=== PATIENT | female | born 1995 | race Caucasian/White ===

== ENCOUNTER 2021-06-16 13:49 | Emergency (ER) | payer MEDICAID ==
[~2021-06-16] VITALS: Ht 175.3 cm; Wt 124.3 kg
[2021-06-16 14:09] VITALS: BP_SYST 160
[2021-06-16 14:41] LABS: BILIRUBIN,URINE NEGATIVE (NEGATIVE); BLOOD, URINE 3+ (NEGATIVE); CLARITY/URINE SL CLOUDY (CLEAR); COLOR,URINE YELLOW (YELLOW); GLUCOSE,URINE NEGATIVE (NEGATIVE); KETONES,URINE NEGATIVE (NEGATIVE); LEUKOCYTE ESTERASE ,URINE 1+ (NEGATIVE); NITRITE, URINE POSITIVE (NEGATIVE); PH,URINE 6.5 (5.0-8.0); PROTEIN URINE NEGATIVE (NEGATIVE); UROBILINOGEN,URINE 0.2 (0.2-1.0)
[2021-06-16 14:54] LABS: BASOPHILS # (AUTO) 0.1 K/uL (0.0-0.2); BASOPHILS % (AUTO) 0.6 % (0.0-2.0); EOSINOPHILS # (AUTO) 0.4 K/uL (0.0-0.4); EOSINOPHILS % (AUTO) 3.5 % (0.0-4.0); HEMATOCRIT 35.4 % (36-48); HEMOGLOBIN 11.8 g/dL (12.0-16.0); LYMPHOCYTES # (AUTO) 1.9 K/uL (1.0-5.5); MEAN CORPUSCULAR HEMOGLOBIN 28 pg (27-31); MEAN CORPUSCULAR HGB CONC 33 % (32-36); MEAN CORPUSCULAR VOLUME 83 fL (79.0-98.0); MONOCYTES # (AUTO) 0.6 K/uL (0.0-1.0); MONOCYTES % (AUTO) 4.8 % (1.7-9.3); NEUTROPHILS # (AUTO) 9.7 K/uL (1.8-7.7); NEUTROPHILS % (AUTO) 76.1 % (40.0-70.0); PLATELET COUNT (AUTO) 233 K/uL (130-430); RED BLOOD CELL COUNT(AUTO) 4.25 MIL/uL (4.2-6.2); RED CELL DISTRIBUTION WIDTH 13.6 % (9.0-15.0); WHITE BLOOD COUNT (AUTO) 12.7 K/uL (4.8-10.8)
[2021-06-16 15:14] LABS: BACTERIA,URINE MODERATE /HPF (None Seen)
[2021-06-16 15:15] LABS: TRICHOMONAS,URINE Rare /HPF (None Seen)
[2021-06-16 16:06] LABS: INR 0.9 (0.8-1.2); PROTHROMBIN TIME 9.5 SECS (9.5-12.5)
[2021-06-16] MEDS: ONDANSETRON 4 MG ODT TAB PO ONE (16:19)
[2021-06-16] MEDS ORDERED: IBUP-1971 PO (17:07)
[2021-06-16] MEDS ORDERED: HYDR-3917 PO (17:07)
[2021-06-16] MEDS: KETOROLAC TROMETHAMINE 60 MG/2 ML VIAL IM ONE (17:14)
[2021-06-16 17:18] LABS: CALCIUM 8.8 mg/dL (8.4-11.0); CREATININE 0.59 mg/dL (0.55-1.30)
[2021-06-16 17:22] LABS: ALBUMIN 3.5 g/dL (3.4-4.8); TOTAL BILIRUBIN 0.5 mg/dL (0.0-1.0)
[2021-06-16] MEDS ORDERED: NITR-85 PO (17:37)
[2021-06-16] MEDS ORDERED: ONDANSETRON 4 MG ODT TAB ONE (17:39)
[2021-06-16] MEDS ORDERED: ONDANSETRON 4 MG ODT TAB PO ONE (17:45)
[2021-06-16] MEDS: cefTRIAXone 1 GM in LIDOCAINE 1%, 20 ML MDV 2.1 ML IM ONE (17:51)
[2021-06-16 17:53] VITALS: BP_SYST 160
== END 2021-06-16 17:53 | disposition home or self-care (01) ==
LOC: SED 13:49
DX: N39.0 Urinary tract infection, site not specified (principal); Z79.899 Other long term (current) drug therapy
CPT/HCPCS: 36415; 74176; 76376; 80053; 81000; 81025; 82150; 83605; 83690; 84703; 85025; 85610; 85730; 87086; 96372; 99284; J0696; J1885; J2001; Q0162

== ENCOUNTER 2021-07-31 15:52 | Emergency (ER) | payer MEDICAID ==
[~2021-07-31] VITALS: Ht 175.3 cm; Wt 124.7 kg
[~2021-07-31 15:52] MED LIST: HYDR-3917 PO; IBUP-1971 PO; NITR-85 PO
[2021-07-31 16:00] VITALS: BP_SYST 137
--- NOTE | 2021-07-31 16:00 | NUR ---
BROUGHT BACK TO BED #1 AND TRIAGED. REPORT GIVEN TO ALESSANDRO
--- NOTE | 2021-07-31 16:11 | NUR ---
DR AMADO IN TO ASSESS
--- NOTE | 2021-07-31 16:36 | NUR ---
BACK FROM CT, TRANSPORTED WITHOUT INCIDENT, NO CHANGE IN MENTATION
[2021-07-31 16:42] LABS: BILIRUBIN,URINE NEGATIVE (NEGATIVE); COLOR,URINE YELLOW (YELLOW); GLUCOSE,URINE NEGATIVE (NEGATIVE); KETONES,URINE NEGATIVE (NEGATIVE); LEUKOCYTE ESTERASE ,URINE 1+ (NEGATIVE); NITRITE, URINE NEGATIVE (NEGATIVE); PROTEIN URINE NEGATIVE (NEGATIVE); UROBILINOGEN,URINE 0.2 (0.2-1.0)
[2021-07-31] MEDS ORDERED: ONDANSETRON 4 MG ODT TAB PO ONE (16:45)
[2021-07-31] MEDS ORDERED: KETOROLAC TROMETHAMINE 60 MG/2 ML VIAL IM ONE (16:45)
[2021-07-31 16:52] LABS: BLOOD, URINE TRACE (NEGATIVE); CLARITY/URINE HAZY (CLEAR)
[2021-07-31 16:57] LABS: BASOPHILS # (AUTO) 0.1 K/uL (0.0-0.2); BASOPHILS % (AUTO) 0.5 % (0.0-2.0); EOSINOPHILS # (AUTO) 0.6 K/uL (0.0-0.4); EOSINOPHILS % (AUTO) 4.2 % (0.0-4.0); HEMATOCRIT 35.2 % (36-48); HEMOGLOBIN 11.9 g/dL (12.0-16.0); LYMPHOCYTES # (AUTO) 2.3 K/uL (1.0-5.5); LYMPHOCYTES % (AUTO) 17.1 % (20.5-51.5); MEAN CORPUSCULAR HEMOGLOBIN 28 pg (27-31); MEAN CORPUSCULAR HGB CONC 34 % (32-36); MEAN CORPUSCULAR VOLUME 82 fL (79.0-98.0); MONOCYTES # (AUTO) 0.6 K/uL (0.0-1.0); MONOCYTES % (AUTO) 4.6 % (1.7-9.3); NEUTROPHILS # (AUTO) 9.9 K/uL (1.8-7.7); NEUTROPHILS % (AUTO) 73.6 % (40.0-70.0); PLATELET COUNT (AUTO) 247 K/uL (130-430); RED BLOOD CELL COUNT(AUTO) 4.29 MIL/uL (4.2-6.2); RED CELL DISTRIBUTION WIDTH 13.6 % (9.0-15.0); WHITE BLOOD COUNT (AUTO) 13.4 K/uL (4.8-10.8)
[2021-07-31 17:16] LABS: CREATININE 0.61 mg/dL (0.55-1.30)
[2021-07-31 17:19] LABS: BACTERIA,URINE MODERATE /HPF (None Seen); RBC,URINE 0-3 /HPF (0-3); WBC,URINE 20-50 /HPF (0-3)
[2021-07-31 17:21] LABS: MUCUS,URINE 1+ /LPF (None Seen); TRICHOMONAS,URINE Few /HPF (None Seen)
[2021-07-31 17:27] LABS: ALBUMIN 3.4 g/dL (3.4-4.8); TOTAL BILIRUBIN 0.4 mg/dL (0.0-1.0)
--- NOTE | 2021-07-31 17:30 | NUR ---
ULTRASOUND COMPLETED, PT CALM, ALERT, TOLERATED WELL
[2021-07-31 17:51] VITALS: BP_SYST 128
--- NOTE | 2021-07-31 17:55 | NUR ---
MODERATE PAINRELIEF WITH TORADOL, PT DENIES NAUSEA, SKIN WARM AND DRY. CLEAR MENTATION
[2021-07-31] MEDS ORDERED: NITR-85 PO (18:11)
[2021-07-31] MEDS ORDERED: DICY10CA13 PO (18:11)
--- NOTE | 2021-07-31 18:27 | NUR ---
Patient given written and verbal discharge instructions and verbalizes understanding. ER MD discussed with patient the results and treatment provided. Patient in stable condition. ID arm band removed. Rx of DICYCLOMINE, MACROBID given. Patient educated on pain management and to follow up with PMD. Pain Scale 1/10. Opportunity for questions provided and answered. Medication side effect fact sheet provided.
--- NOTE | 2021-07-31 18:42 | NUR ---
Patient given written and verbal discharge instructions and verbalizes understanding. ER MD discussed with patient the results and treatment provided. Patient in stable condition. ID arm band removed. Patient educated on pain management and to follow up with PMD. Pain Scale 4/10 Opportunity for questions provided and answered. Medication side effect fact sheet provided.
== END 2021-07-31 18:42 | disposition home or self-care (01) ==
LOC: SED 15:52
DX: K80.20 Calculus of gallbladder without cholecystitis without obstruction (principal); N39.0 Urinary tract infection, site not specified; Z79.899 Other long term (current) drug therapy
CPT/HCPCS: 36415; 74176; 76376; 76700; 80053; 81000; 81025; 83690; 84702; 85025; 87086; 96372; 99285; J1885; Q0162

== ENCOUNTER 2023-05-06 20:07 | Inpatient (IN) | payer MEDICAID ==
[~2023-05-06] VITALS: Ht 175.3 cm; Wt 113.4 kg
[~2023-05-06 20:07] MED LIST changes: +DICY10CA13 PO
[2023-05-06 20:18] VITALS: BP_SYST 135
--- NOTE | 2023-05-06 20:18 | NUR ---
Triaged and placed patient to ER HALLW[facility] 1 for evaluation. Report given to LUI ROCHA for continuity of care. Bed placed in lowest position with side rails up. Instructed to notify ED staff for any changes in condition or worsening of symptoms while waiting to be seen by a provider. Patient verbalized understanding.
--- NOTE | 2023-05-06 20:20 | NUR ---
Dr. PHIPPS at bedside examining the patient.
--- NOTE | 2023-05-06 20:22 | NUR ---
PT STATES ABD PAIN UPPER RIGHT QUADRANT RADIATES TO LEFT UPPERSIDE AND TO THE RIGHT BACK SIDE. PT RATES PAIN 10/10 VSS, EVEN UNLABORED RR. CONNECTED TO CONTINOUS VS
[2023-05-06] MEDS ORDERED: MORPHINE 4 MG INJ. 4 MG/ML VIAL IVP ONE (20:30)
--- NOTE | 2023-05-06 20:30 | NUR ---
# 22 gauge angiocath placed to AND. Use of asceptic technique. Opsite placed over site. Blood return noted. Blood for lab drawn from site. Flushed with 10 cc of normal saline. No evidence of infiltration noted. Patient tolerated well.
[2023-05-06 21:01] LABS: BASOPHILS # (AUTO) 0.1 K/uL (0.0-0.2); BASOPHILS % (AUTO) 0.3 % (0.0-2.0); EOSINOPHILS # (AUTO) 0.4 K/uL (0.0-0.4); EOSINOPHILS % (AUTO) 2.4 % (0.0-4.0); HEMATOCRIT 38.8 % (36-48); HEMOGLOBIN 13.2 g/dL (12.0-16.0); LYMPHOCYTES # (AUTO) 1.6 K/uL (1.0-5.5); LYMPHOCYTES % (AUTO) 8.5 % (20.5-51.5); MEAN CORPUSCULAR HEMOGLOBIN 29 pg (27-31); MEAN CORPUSCULAR HGB CONC 34 % (32-36); MEAN CORPUSCULAR VOLUME 86 fL (79.0-98.0); MONOCYTES # (AUTO) 0.7 K/uL (0.0-1.0); MONOCYTES % (AUTO) 3.8 % (1.7-9.3); NEUTROPHILS # (AUTO) 15.9 K/uL (1.8-7.7); PLATELET COUNT (AUTO) 263 K/uL (130-430); RED BLOOD CELL COUNT(AUTO) 4.49 MIL/uL (4.2-6.2); RED CELL DISTRIBUTION WIDTH 13.6 % (9.0-15.0); WHITE BLOOD COUNT (AUTO) 18.7 K/uL (4.8-10.8)
[2023-05-06 21:10] LABS: BILIRUBIN,URINE NEGATIVE (NEGATIVE); BLOOD, URINE NEGATIVE (NEGATIVE); CLARITY/URINE SL CLOUDY (CLEAR); COLOR,URINE YELLOW (YELLOW); GLUCOSE,URINE NEGATIVE (NEGATIVE); KETONES,URINE TRACE (NEGATIVE); LEUKOCYTE ESTERASE ,URINE NEGATIVE (NEGATIVE); NITRITE, URINE NEGATIVE (NEGATIVE); PROTEIN URINE NEGATIVE (NEGATIVE)
[2023-05-06 21:19] LABS: ALBUMIN 3.7 g/dL (3.4-4.8); CALCIUM 9.1 mg/dL (8.4-11.0); CREATININE 0.66 mg/dL (0.55-1.30); TOTAL BILIRUBIN 0.5 mg/dL (0.0-1.0)
[2023-05-06] MEDS ORDERED: cefTRIAXone 1 GM IVPB PREMIX 50 ML IV ONE (22:15)
[2023-05-06] MEDS ORDERED: D5/0.45 NS 1,000 ML IV ONE (22:15)
--- NOTE | 2023-05-06 22:32 | NUR ---
Admit bed requested Patient will be admitted to care of . Admitted to MEDSURG unit. Diagnosis CHOLECYSITITIS Inpatient (Yes or No) YES Observation (Yes or No) NO Orientation concerns or request close to nursing station (Yes or No) NO Covid Status N/A On vent or bipap NO Isolation requirements NO Needs a sitter NO From Home (Yes or if No enter name of facility) YES Requires Dialysis (Yes or No) NO Med Rec Completed (Yes of No) YES
[2023-05-06] MEDS: MORPHINE 4 MG INJ. 4 MG/ML VIAL IVP PRN (23:59)
[2023-05-06] MEDS: ONDANSETRON HCL 4 MG/2 ML VIAL IVP PRN (23:59)
--- NOTE | 2023-05-07 00:04 | NUR ---
Patient will be admitted to care of DR JEFFERY. Admitted to MED SURGE unit. Will go to room 134B . Belongings list completed. Complete and up to date summary report printed. SBAR report to be given at bedside with opportunity for questions.
[2023-05-07] MEDS: D5/0.45 NS 1,000 ML IV SCH ×3 (00:13→19:31)
[2023-05-07 00:15] VITALS: BP_SYST 134
--- NOTE | 2023-05-07 00:19 | NUR ---
Report received from JOSEFINA Henning for continuity of care. Patient stable.
--- NOTE | 2023-05-07 00:20 | NUR ---
Patient arrived from ED to room 134 B for complaint of abdominal pain. Patient said she has history of Cholecystitis and was hospitalized but was discharged in the past. Patient denies PMH. She c/o pain when arrived to room. Vital signs stable. No active distress noted. Alert and oriented x4. No neuro deficits. Respiration even and unlabored. No shortness of breath. Endorsed to JOSEFINA Osborne for continuity of care.
--- NOTE | 2023-05-07 00:45 | NUR ---
RECEIVED PT IN BED EASY TO AROUSE ORIENTED TO PLAN OF CARE ORIENTED TO ROOM AND CALL LIGHT PLACED IN REACH SKIN DRY AND INTACT AMBULATORY ADVISED TO CALL FOR ASSISTANCE ENDORSES PAIN MEDICATION EFFECTIVE AND DENIES PAIN AT THIS TIME
[2023-05-07 04:00] VITALS: BP_SYST 109
--- NOTE | 2023-05-07 05:52 | NUR ---
SURG CONSULT CONSULT FOR DR. DELGADILLO WAS CALLED RE CHOLECYSTITIS S/W KEM
--- NOTE | 2023-05-07 05:53 | NUR ---
GI CONSULT CONSULT FOR DR. GUZMAN WAS CALLED, DR DAVISON IS GUEST RELATIONS RECEPTIONIST RE CHOLECYSTITIS S/W KEM
--- NOTE | 2023-05-07 06:11 | NUR ---
ALL NEEDS ANTICIPATED AND MET REMAINS NPO CALL LIGHT IN REACH NO DISTRESS NOTED AT THIS TIME WILL ENDORSE CARE TO ONCOMING LICENSED NURSE
--- NOTE | 2023-05-07 07:45 | NUR ---
Initial Note: Report received from Herminio. Patient is awake alert x4. Call light in reach, Bed in the lowest position and side rails x2 up. Charge nurse Aspen gave the Morphine for pain. Will continue to monitor.
[2023-05-07 08:04] VITALS: BP_SYST 94
[2023-05-07] MEDS: MORPHINE 2 MG/ML INJ. SYRINGE IVP PRN ×2 (08:16→08:26)
[2023-05-07] MEDS: ONDANSETRON HCL 4 MG/2 ML VIAL IVP PRN ×4 (08:26→23:02)
--- NOTE | 2023-05-07 08:26 | NUR ---
PATIENT REFUSES MEDICATION FOR PAIN, MORPHINE, AND NAUSEA, ANDRAE, SAYS PHARMACY SALES REPRESENTATIVE IS FLORENCIO PER CHARGE NURSE.
--- NOTE | 2023-05-07 08:33 | NUR ---
ENDORSEMENT TO JOSEFINA CLAIRE, FOR CONTINUATION OF CARE.
[2023-05-07] MEDS: MORPHINE 4 MG INJ. 4 MG/ML VIAL IVP PRN ×3 (08:39→18:22)
--- NOTE | 2023-05-07 12:00 | NUR ---
Note: patient is resting in bed. Family is at the bedside. Will continue patient care. Assisted to the bathroom.
--- NOTE | 2023-05-07 16:33 | NUR ---
Note: patient is resting in bed. No pain or discomfort at this time. Will continue to monitor.
--- NOTE | 2023-05-07 19:36 | NUR ---
Closing note: reported to Romana. patient is awake alert x4. Call light in reach. Stated the pain is better after pain medication. Endorse to continue patient care.
[2023-05-07 20:00] VITALS: BP_SYST 108
--- NOTE | 2023-05-07 22:51 | NUR ---
CALLED DR. Lissy JEFFERY FOR MEDICATION ORDER @[id number]
[2023-05-07] MEDS ORDERED: KETOROLAC TROMETHAMINE 30 MG VIAL ONE (22:55)
[2023-05-07] MEDS ORDERED: KETOROLAC TROMETHAMINE 30 MG VIAL IVP PRN (23:00)
--- NOTE | 2023-05-07 23:24 | NUR ---
CONSULTATION DR. ALCALA AT NURSING STATION. DR. CANELA ABOUT CONSULTATION REQUEST.
[2023-05-08 04:00] VITALS: BP_SYST 95
--- NOTE | 2023-05-08 04:49 | NUR ---
Patient is alert, oriented, she complained of moderate to severe pain during the shift and Morphine only helps for short time. During the time patient was complaining of abdomen pain, Dr. Bashir came to unit to see the patient. He also explained to the patient that narcotics should not be used within 12 hours of having her HIDA scan. IV Toradol 30 mg was ordered and given. Patient had extremely loud crying spell as she believed that the Toradol would not be effective, it was. The patient was also noted using harsh profanity at physician for changing her medication even after he explained the risks of having the narcotics within a specific time frame of having the HIDA scan. The patient eventually calmed down, she was observed resting well. She has remained NPO throughout the shift. IV Zofran was given for small bouts of nausea, good results.
[2023-05-08] MEDS: ONDANSETRON HCL 4 MG/2 ML VIAL IVP PRN (05:21)
[2023-05-08] MEDS: D5/0.45 NS 1,000 ML IV SCH (05:22)
[2023-05-08 05:28] LABS: BASOPHILS % (AUTO) 0.6 % (0.0-2.0); EOSINOPHILS # (AUTO) 0.4 K/uL (0.0-0.4); EOSINOPHILS % (AUTO) 5.1 % (0.0-4.0); HEMATOCRIT 33.7 % (36-48); HEMOGLOBIN 11.4 g/dL (12.0-16.0); LYMPHOCYTES # (AUTO) 2.2 K/uL (1.0-5.5); MEAN CORPUSCULAR HEMOGLOBIN 29 pg (27-31); MEAN CORPUSCULAR HGB CONC 34 % (32-36); MEAN CORPUSCULAR VOLUME 87 fL (79.0-98.0); MONOCYTES # (AUTO) 0.5 K/uL (0.0-1.0); MONOCYTES % (AUTO) 5.5 % (1.7-9.3); NEUTROPHILS # (AUTO) 5.5 K/uL (1.8-7.7); NEUTROPHILS % (AUTO) 63.8 % (40.0-70.0); PLATELET COUNT (AUTO) 212 K/uL (130-430); RED BLOOD CELL COUNT(AUTO) 3.89 MIL/uL (4.2-6.2); RED CELL DISTRIBUTION WIDTH 13.4 % (9.0-15.0); WHITE BLOOD COUNT (AUTO) 8.6 K/uL (4.8-10.8)
[2023-05-08 05:49] LABS: CALCIUM 8.3 mg/dL (8.4-11.0); CREATININE 0.7 mg/dL (0.55-1.30); TOTAL BILIRUBIN 0.6 mg/dL (0.0-1.0)
--- NOTE | 2023-05-08 07:20 | NUR ---
rn opening report was endorsed by [facility] .patient is laying in bed.Awake and alert no complaints at this time. call light is with her. educated to use for assistance.
[2023-05-08 08:08] VITALS: BP_SYST 100
--- NOTE | 2023-05-08 09:00 | NUR ---
RN ROUNDING PATIENT APPEARS TO BE RESTING WITH BOTH EYES CLOSED NO SIGNS OF ANY DISTRESS, BREATHING IS EQUAL AND NON LABORED. ALL SAFETY PRECAUTIONS IN PLACE.
[2023-05-08 12:00] VITALS: BP_SYST 118
--- NOTE | 2023-05-08 12:00 | NUR ---
rn rounding patient is awake and alert laying in bed. Cellufun states he will be getting her is 2 hours at bedside. Patient has call light is with her educated to use call light for assistance.
--- NOTE | 2023-05-08 13:50 | NUR ---
patient transferred to have hyda scan done.
--- NOTE | 2023-05-08 15:05 | NUR ---
AMA Patient was having hyda scan done, was with her during scan. after scan was completed the patient got upset and took off through ER with iv in place, and ID band per and hyda scan tech. The states that she tried to reason with her to come back in and have her iv removed but was upset and took off walking in the parking lot. called security unable to find her. the came back to patients room and gathered all her belongings and took off in her car. i called the recycling director department to report that she left with iv access and id band. Addendum: 05/08/23 at 1559 by Millie Tesfaye RN AT [email or web address]. INFORMED PATIENT LEFT MIKEY
== END 2023-05-08 15:05 | disposition left against medical advice (07) ==
LOC: SED 20:07 → SMU 22:09
PROVIDERS: ADMIT Preventive Medicine Preventive Medicine/Occupational Environmental Medicine; ATTEND Preventive Medicine Preventive Medicine/Occupational Environmental Medicine
DX: K80.20 Calculus of gallbladder without cholecystitis without obstruction (principal); E87.1 Hypo-osmolality and hyponatremia; K59.00 Constipation, unspecified; F17.290 Nicotine dependence, other tobacco product, uncomplicated
CPT/HCPCS: 36415; 76700-TC; 78226; 80053; 81003; 83690; 85025; 87040; 96365; 99285; A9537; J0696; J1885; J2270; J2405

== ENCOUNTER 2023-06-30 11:43 | Emergency (ER) | payer MEDICAID, OTHER ==
[~2023-06-30] VITALS: Ht 175.3 cm; Wt 124.7 kg
[2023-06-30 11:53] VITALS: BP_SYST 140; PULSE 71; RESP 16; TEMP 98; O2SAT 100
[2023-06-30 14:06] VITALS: BP_SYST 140; PULSE 71; RESP 16; TEMP 98; O2SAT 100
== END 2023-06-30 14:07 | disposition home or self-care (01) ==
LOC: SED 11:43
DX: S06.0X0A Concussion without loss of consciousness, initial encounter (principal); Z79.899 Other long term (current) drug therapy; Y04.0XXA Assault by unarmed brawl or fight, initial encounter; Y93.89 Activity, other specified; Y92.89 Other specified places as the place of occurrence of the external cause; Y99.8 Other external cause status
CPT/HCPCS: 70450-TC; 76376; 99284

== ENCOUNTER 2023-09-09 05:05 | Emergency (ER) | payer MEDICAID, OTHER ==
[~2023-09-09] VITALS: Ht 175.3 cm; Wt 124.7 kg
[~2023-09-09 05:05] MED LIST changes: +DICY-14 PO; -DICY10CA13 PO
[2023-09-09 05:19] VITALS: PULSE 91; RESP 16; TEMP 96.2; O2SAT 100
[2023-09-09] MEDS ORDERED: KETOROLAC TROMETHAMINE 30 MG VIAL IM ONE (05:30)
[2023-09-09] MEDS ORDERED: CYCLOBENZAPRINE HCL 10 MG TABLET (FLEXERIL) PO ONE (05:30)
[2023-09-09] MEDS ORDERED: LIDOCAINE PATCH 5% 1 EA TP ONE (05:30)
[2023-09-09] MEDS ORDERED: KETOROLAC TROMETHAMINE 60 MG/2 ML VIAL IM ONE (06:30)
[2023-09-09] MEDS ORDERED: HYDROcodone/ACETAMIN 5-325 MG TAB (NORCO/ VICODIN) PO ONE (06:30)
[2023-09-09] MEDS ORDERED: predniSONE 20 MG TABLET PO ONE (06:30)
[2023-09-09] MEDS ORDERED: TRAM50TA2 PO (06:32)
[2023-09-09] MEDS ORDERED: PRED20TA PO (06:32)
[2023-09-09] MEDS ORDERED: IBUP-1971 PO (06:32)
[2023-09-09] MEDS ORDERED: SOM350 PO (06:32)
[2023-09-09 07:32] LABS: BILIRUBIN,URINE NEGATIVE (NEGATIVE); BLOOD, URINE NEGATIVE (NEGATIVE); CLARITY/URINE CLEAR (CLEAR); COLOR,URINE YELLOW (YELLOW); GLUCOSE,URINE NEGATIVE (NEGATIVE); KETONES,URINE NEGATIVE (NEGATIVE); LEUKOCYTE ESTERASE ,URINE NEGATIVE (NEGATIVE); NITRITE, URINE NEGATIVE (NEGATIVE); PROTEIN URINE NEGATIVE (NEGATIVE); UROBILINOGEN,URINE 0.2 (0.2-1.0)
[2023-09-09 08:08] VITALS: BP_SYST 131; PULSE 74; RESP 20; TEMP 97.4; O2SAT 98
== END 2023-09-09 08:07 | disposition home or self-care (01) ==
LOC: SED 05:05
DX: S39.012A Strain of muscle, fascia and tendon of lower back, initial encounter (principal); Z79.899 Other long term (current) drug therapy; W18.2XXA Fall in (into) shower or empty bathtub, initial encounter; Y93.89 Activity, other specified; Y92.89 Other specified places as the place of occurrence of the external cause; Y99.8 Other external cause status
CPT/HCPCS: 99284; 81001; 81025; 96372; 81003; J7512; J1885

== ENCOUNTER 2023-12-01 17:19 | Inpatient (IN) | payer MEDICAID ==
[~2023-12-01] VITALS: Ht 175.3 cm; Wt 113.4 kg
[~2023-12-01 17:19] MED LIST changes: +PRED20TA PO; +SOM350 PO; +TRAM50TA2 PO
[2023-12-01 17:25] VITALS: BP_SYST 164; PULSE 99; RESP 26; TEMP 99.2; O2SAT 99
[2023-12-01] MEDS ORDERED: NACL 0.9% 1,000 ML IV ONE ×2 (17:30→21:00)
[2023-12-01] MEDS ORDERED: MORPHINE 4 MG INJ. 4 MG/ML VIAL IM ONE (17:30)
[2023-12-01] MEDS ORDERED: ONDANSETRON HCL 4 MG/2 ML VIAL IVP ONE (17:30)
[2023-12-01 17:58] LABS: BILIRUBIN,URINE NEGATIVE (NEGATIVE); CLARITY/URINE CLOUDY (CLEAR); COLOR,URINE YELLOW (YELLOW); GLUCOSE,URINE NEGATIVE (NEGATIVE); KETONES,URINE 2+ (NEGATIVE); LEUKOCYTE ESTERASE ,URINE NEGATIVE (NEGATIVE); NITRITE, URINE NEGATIVE (NEGATIVE); PH,URINE 6.5 (5.0-8.0); PROTEIN URINE TRACE (NEGATIVE)
[2023-12-01 18:00] LABS: BLOOD, URINE TRACE (NEGATIVE)
[2023-12-01] MEDS ORDERED: MORPHINE 4 MG INJ. 4 MG/ML VIAL IVP ONE (18:00)
[2023-12-01 18:02] LABS: BASOPHILS # (AUTO) 0.1 K/uL (0.0-0.2); BASOPHILS % (AUTO) 0.5 % (0.0-2.0); EOSINOPHILS # (AUTO) 0.3 K/uL (0.0-0.4); EOSINOPHILS % (AUTO) 1.9 % (0.0-4.0); HEMATOCRIT 38.7 % (36-48); HEMOGLOBIN 13.1 g/dL (12.0-16.0); LYMPHOCYTES # (AUTO) 1.9 K/uL (1.0-5.5); LYMPHOCYTES % (AUTO) 12.9 % (20.5-51.5); MEAN CORPUSCULAR HEMOGLOBIN 28 pg (27-31); MEAN CORPUSCULAR HGB CONC 34 % (32-36); MEAN CORPUSCULAR VOLUME 82 fL (79.0-98.0); MONOCYTES # (AUTO) 0.9 K/uL (0.0-1.0); MONOCYTES % (AUTO) 5.9 % (1.7-9.3); NEUTROPHILS # (AUTO) 11.8 K/uL (1.8-7.7); NEUTROPHILS % (AUTO) 78.8 % (40.0-70.0); PLATELET COUNT (AUTO) 372 K/uL (130-430); RED BLOOD CELL COUNT(AUTO) 4.71 MIL/uL (4.2-6.2); RED CELL DISTRIBUTION WIDTH 13.9 % (9.0-15.0)
[2023-12-01 18:06] LABS: ALBUMIN 4.1 g/dL (3.4-4.8); BILIRUBIN,DIRECT 0.2 mg/dL (0.0-0.3); CALCIUM 8.9 mg/dL (8.4-11.0); CREATININE 0.71 mg/dL (0.55-1.30); POTASSIUM 3.5 mmol/L (3.5-5.1); TOTAL PROTEIN, SERUM 9.1 g/dL (6.4-8.3)
[2023-12-01 18:15] LABS: BACTERIA,URINE FEW /HPF (None Seen); WBC,URINE 0-3 /HPF (0-3)
[2023-12-01] MEDS ORDERED: cefTRIAXone 1 GM in D5W 50 ML IV ONE (19:00)
[2023-12-01 19:36] LABS: PROTHROMBIN TIME 9.9 SECS (9.5-12.5)
[2023-12-01] MEDS ORDERED: iohexoL 350 mgI/mL, 100 ML INFUS..BTL IV ONE (20:07)
[2023-12-01] MEDS ORDERED: cefTRIAXone 1 GM VIAL ONE (20:34)
[2023-12-01 22:00] LABS: INFLUENZA TYPE A Negative (NEGATIVE); INFLUENZA TYPE B NEGATIVE (NEGATIVE)
[2023-12-01] MEDS ORDERED: hydrALAZINE HCL 20 MG/ML VIAL IVP PRN (22:00)
[2023-12-01] MEDS ORDERED: HYDROcodone/ACETAMIN 5-325 MG TAB (NORCO/ VICODIN) PO PRN (22:00)
[2023-12-01] MEDS ORDERED: ACETAMINOPHEN 325 MG TABLET PO PRN (22:00)
[2023-12-01] MEDS: cefTRIAXone 1 GM IVPB PREMIX 50 ML IV SCH (23:05)
[2023-12-02] VITALS: BP_SYST 111; BP_SYST 137; PULSE 81; PULSE 92; RESP 18; TEMP 97.6; O2SAT 99
[2023-12-02] MEDS: MORPHINE 2 MG/ML INJ. SYRINGE IVP PRN ×5 (00:39→20:04)
[2023-12-02 04:00] VITALS: BP_SYST 108; PULSE 84; RESP 18; TEMP 98; O2SAT 97
[2023-12-02] MEDS: ONDANSETRON HCL 4 MG/2 ML VIAL IVP PRN ×2 (05:29→14:48)
[2023-12-02 06:35] LABS: BASOPHILS # (AUTO) 0.1 K/uL (0.0-0.2); BASOPHILS % (AUTO) 0.6 % (0.0-2.0); EOSINOPHILS # (AUTO) 0.4 K/uL (0.0-0.4); EOSINOPHILS % (AUTO) 3.6 % (0.0-4.0); HEMATOCRIT 32.5 % (36-48); HEMOGLOBIN 10.9 g/dL (12.0-16.0); LYMPHOCYTES # (AUTO) 1.4 K/uL (1.0-5.5); LYMPHOCYTES % (AUTO) 13.9 % (20.5-51.5); MEAN CORPUSCULAR HEMOGLOBIN 28 pg (27-31); MEAN CORPUSCULAR HGB CONC 34 % (32-36); MEAN CORPUSCULAR VOLUME 83 fL (79.0-98.0); MONOCYTES # (AUTO) 0.7 K/uL (0.0-1.0); MONOCYTES % (AUTO) 7.6 % (1.7-9.3); NEUTROPHILS # (AUTO) 7.3 K/uL (1.8-7.7); NEUTROPHILS % (AUTO) 74.3 % (40.0-70.0); PLATELET COUNT (AUTO) 272 K/uL (130-430); RED CELL DISTRIBUTION WIDTH 13.9 % (9.0-15.0); WHITE BLOOD COUNT (AUTO) 9.8 K/uL (4.8-10.8)
[2023-12-02 07:14] LABS: ALBUMIN 2.9 g/dL (3.4-4.8); CALCIUM 8.4 mg/dL (8.4-11.0); CREATININE 0.6 mg/dL (0.55-1.30); POTASSIUM 3.6 mmol/L (3.5-5.1); TOTAL BILIRUBIN 0.8 mg/dL (0.0-1.0); TOTAL PROTEIN, SERUM 6.8 g/dL (6.4-8.3)
[2023-12-02 08:02] VITALS: BP_SYST 117; PULSE 96; RESP 18; TEMP 96.4; O2SAT 97
[2023-12-02] MEDS: HYDROcodone/ACETAMIN 10-325 MG TAB PO PRN ×2 (08:10→17:25)
[2023-12-02] MEDS: AZITHROMYCIN 500 MG in NS 250 ML IV SCH (10:59)
[2023-12-02] MEDS ORDERED: SCOPOLAMINE HYDROBROMIDE 1 MG PATCH .72 H (TRANSDERM-SCOP) TD SCH (18:00)
[2023-12-02 20:00] VITALS: BP_SYST 113; PULSE 97; RESP 18; TEMP 98.6; O2SAT 96
[2023-12-02] MEDS: cefTRIAXone 1 GM IVPB PREMIX 50 ML IV SCH (22:13)
[2023-12-03] VITALS (7 sets, daily range): BP systolic 111–146; PULSE 67–81; RESP 16–20; TEMP 97.1–98.2; O2SAT 96–99
[2023-12-03] MEDS: MORPHINE 2 MG/ML INJ. SYRINGE IVP PRN ×3 (04:34→14:51)
[2023-12-03 06:12] LABS: BASOPHILS # (AUTO) 0.1 K/uL (0.0-0.2); BASOPHILS % (AUTO) 0.6 % (0.0-2.0); EOSINOPHILS # (AUTO) 0.3 K/uL (0.0-0.4); EOSINOPHILS % (AUTO) 2.8 % (0.0-4.0); HEMATOCRIT 30.3 % (36-48); HEMOGLOBIN 10.4 g/dL (12.0-16.0); LYMPHOCYTES # (AUTO) 1.2 K/uL (1.0-5.5); LYMPHOCYTES % (AUTO) 11.4 % (20.5-51.5); MEAN CORPUSCULAR HEMOGLOBIN 28 pg (27-31); MEAN CORPUSCULAR HGB CONC 34 % (32-36); MEAN CORPUSCULAR VOLUME 83 fL (79.0-98.0); MONOCYTES # (AUTO) 0.8 K/uL (0.0-1.0); MONOCYTES % (AUTO) 7.6 % (1.7-9.3); NEUTROPHILS # (AUTO) 8.1 K/uL (1.8-7.7); NEUTROPHILS % (AUTO) 77.6 % (40.0-70.0); PLATELET COUNT (AUTO) 274 K/uL (130-430); RED BLOOD CELL COUNT(AUTO) 3.67 MIL/uL (4.2-6.2); RED CELL DISTRIBUTION WIDTH 13.7 % (9.0-15.0); WHITE BLOOD COUNT (AUTO) 10.4 K/uL (4.8-10.8)
[2023-12-03 06:40] LABS: CALCIUM 8.9 mg/dL (8.4-11.0); CREATININE 0.6 mg/dL (0.55-1.30); POTASSIUM 3.4 mmol/L (3.5-5.1); TOTAL BILIRUBIN 0.8 mg/dL (0.0-1.0); TOTAL PROTEIN, SERUM 7.2 g/dL (6.4-8.3)
[2023-12-03] MEDS ORDERED: DIATR MEGLU/DIATRIZ SOD 30 ML SOLUTION PO ONE (10:18)
[2023-12-03] MEDS: AZITHROMYCIN 500 MG in NS 250 ML IV SCH (12:40)
[2023-12-03] MEDS: ONDANSETRON HCL 4 MG/2 ML VIAL IVP PRN (18:53)
[2023-12-03] MEDS: HYDROcodone/ACETAMIN 10-325 MG TAB PO PRN (18:54)
[2023-12-03] MEDS: cefTRIAXone 1 GM IVPB PREMIX 50 ML IV SCH (21:30)
[2023-12-04] VITALS: BP_SYST 118; PULSE 65; RESP 18; TEMP 97.5; O2SAT 99
[2023-12-04 04:00] VITALS: BP_SYST 121; PULSE 98; RESP 20; TEMP 97.2; O2SAT 99
[2023-12-04 06:41] LABS: BASOPHILS # (AUTO) 0.1 K/uL (0.0-0.2); BASOPHILS % (AUTO) 0.7 % (0.0-2.0); EOSINOPHILS # (AUTO) 0.4 K/uL (0.0-0.4); EOSINOPHILS % (AUTO) 3.5 % (0.0-4.0); HEMATOCRIT 31.9 % (36-48); HEMOGLOBIN 10.9 g/dL (12.0-16.0); LYMPHOCYTES % (AUTO) 9.1 % (20.5-51.5); MEAN CORPUSCULAR HEMOGLOBIN 28 pg (27-31); MEAN CORPUSCULAR HGB CONC 34 % (32-36); MEAN CORPUSCULAR VOLUME 82 fL (79.0-98.0); MONOCYTES # (AUTO) 0.8 K/uL (0.0-1.0); MONOCYTES % (AUTO) 7.4 % (1.7-9.3); NEUTROPHILS # (AUTO) 9.1 K/uL (1.8-7.7); NEUTROPHILS % (AUTO) 79.3 % (40.0-70.0); PLATELET COUNT (AUTO) 302 K/uL (130-430); RED BLOOD CELL COUNT(AUTO) 3.91 MIL/uL (4.2-6.2); RED CELL DISTRIBUTION WIDTH 13.4 % (9.0-15.0); WHITE BLOOD COUNT (AUTO) 11.4 K/uL (4.8-10.8)
[2023-12-04 06:53] LABS: CREATININE 0.55 mg/dL (0.55-1.30); POTASSIUM 3.5 mmol/L (3.5-5.1); TOTAL BILIRUBIN 0.7 mg/dL (0.0-1.0); TOTAL PROTEIN, SERUM 7.2 g/dL (6.4-8.3)
[2023-12-04] MEDS: MORPHINE 2 MG/ML INJ. SYRINGE IVP PRN (06:57)
[2023-12-04 08:45] VITALS: O2SAT 97
[2023-12-04] MEDS: AZITHROMYCIN 500 MG in NS 250 ML IV SCH (10:00)
[2023-12-04] MEDS: HYDROcodone/ACETAMIN 10-325 MG TAB PO PRN (10:24)
[2023-12-04] MEDS ORDERED: DOXY100C5 PO (14:29)
== END 2023-12-04 15:30 | disposition home or self-care (01) | DRG 139 ==
LOC: SED 17:19 → SMU 21:46
PROVIDERS: ADMIT Family Medicine; ATTEND Family Medicine
DX: J18.9 Pneumonia, unspecified organism (principal); C85.99 Non-Hodgkin lymphoma, unspecified, extranodal and solid organ sites; R16.2 Hepatomegaly with splenomegaly, not elsewhere classified; E66.9 Obesity, unspecified; R59.0 Localized enlarged lymph nodes; R09.1 Pleurisy; Z20.822 Contact with and (suspected) exposure to COVID-19; R91.8 Other nonspecific abnormal finding of lung field; K80.20 Calculus of gallbladder without cholecystitis without obstruction; Z68.36 Body mass index [BMI] 36.0-36.9, adult; Z79.899 Other long term (current) drug therapy
CPT/HCPCS: 36415; 71045; 71275; 76376; 76700; 80048; 80053; 80076; 81000; 81001; 81015; 83605; 83615; 83690; 85025; 85379; 85610; 85730; 87040; 93005; 96365; 96375; 99285; J0456; J0696; J2270; J2405; J7050; Q9964; Q9967